=== PATIENT | female | born 1970 | race Asian ===

== ENCOUNTER 2023-12-12 07:02 | Day surgery (SDC) | payer OTHER ==
[~2023-12-12] VITALS: Ht 142.2 cm; Wt 43.5 kg
[2023-12-12] MEDS ORDERED: MIDAZOLAM 5 MG/5 ML VIAL ONE (08:08)
[2023-12-12] MEDS: MIDAZOLAM 5 MG/5 ML VIAL ONE (08:28)
[2023-12-12] MEDS: fentaNYL citrate 0.05 MG/ML VIAL ONE (08:28)
[2023-12-12] MEDS: LIDOCAINE 2% 100 MG/5 ML UJET TP ONE (08:31)
== END 2023-12-12 10:05 | disposition home or self-care (01) ==
LOC: MOR 07:02 → MMU 07:03 → MOR 10:05
PROVIDERS: ATTEND Internal Medicine Gastroenterology
DX: Z12.11 Encounter for screening for malignant neoplasm of colon (principal); K57.30 Diverticulosis of large intestine without perforation or abscess without bleeding; K64.9 Unspecified hemorrhoids; E11.9 Type 2 diabetes mellitus without complications; Z79.84 Long term (current) use of oral hypoglycemic drugs; Z79.899 Other long term (current) drug therapy
CPT/HCPCS: 45378; 82948; J2250; J3010

== ENCOUNTER 2024-01-17 15:43 | Emergency (ER) | payer OTHER ==
[~2024-01-17] VITALS: Ht 152.4 cm; Wt 42.2 kg
[2024-01-17 16:07] VITALS: BP 113/70; PULSE 66; RESP 18; TEMP 98.2; O2SAT 100
[2024-01-17] MEDS: LIDOCAINE MPF 1% 10 MG/ML VIAL INJ ONE (16:35)
[2024-01-17] MEDS: ACETAMINOPHEN EXTRA STRENGTH 500 MG TAB PO ONE (16:43)
[2024-01-17] MEDS ORDERED: BACI-418 TP (16:59)
[2024-01-17] MEDS: BACITRACIN OINT 500 UNITS/GM PKT TP ONE (17:00)
== END 2024-01-17 17:08 | disposition home or self-care (01) ==
LOC: MED 15:43
DX: S61.211A Laceration without foreign body of left index finger without damage to nail, initial encounter (principal); Z79.899 Other long term (current) drug therapy; W26.0XXA Contact with knife, initial encounter; Y93.89 Activity, other specified; Y92.89 Other specified places as the place of occurrence of the external cause; Y99.8 Other external cause status
CPT/HCPCS: 12001; 90471; 90715; 99283; J2001